=== PATIENT | male | born 1995 | race Caucasian/White ===

== ENCOUNTER 2024-09-05 15:47 | Outpatient (CLI) | payer BC, SELFPAY ==
--- NOTE | 2024-09-05 16:27 | DI.RAD_ITS ---
Exam(s) XR FINGER RT MIDDLE XR FINGER RT RING EXAM: XR FINGER RT RING CLINICAL HISTORY: Rt finger injury, initial encounter, S69.91XA, concern of 3- 4 digit Tuft fx. TECHNIQUE: 2D digital imaging was performed. Three views of the 3rd and 4th. Digits PA view of the hand. COMPARISON: CR XR FINGER RT MIDDLE from 09/05/2024 FINDINGS: BONES: There is a nondisplaced fracture at the tip of the tuft of the ring finger which is mildly displaced. There is no fracture at the 3rd tuft. No bony destructive lesion is seen. JOINTS: No dislocation present. SOFT TISSUE: Normal. IMPRESSION: Tuft fracture of the ring finger. DATA REPOSITORY: RADIATION DOSE DELIVERED:
== END 2024-09-05 16:07 ==
PROVIDERS: Visit Provider Student in an Organized Health Care Education/Training Program
DX: S62.634A Displaced fracture of distal phalanx of right ring finger, initial encounter for closed fracture (principal); X58.XXXA Exposure to other specified factors, initial encounter
CPT/HCPCS: 73140